=== PATIENT | female | born 1940 | race Native Hawaiian/Other Pacific Islander ===

== ENCOUNTER → 2018-03-22 | Outpatient (CLI) | payer MEDICARE, OTHER ==
[~2018-03-22] MED LIST: NOCURR; OMEP20 PO
== END | disposition home or self-care (01) ==
LOC: RADPV 10:03
PROVIDERS: ATTEND Family Medicine
DX: I70.0 Atherosclerosis of aorta (principal); I51.7 Cardiomegaly; J18.9 Pneumonia, unspecified organism; R91.8 Other nonspecific abnormal finding of lung field

== ENCOUNTER 2023-11-07 10:45 | Emergency (ER) | payer MEDICARE, OTHER ==
[~2023-11-07] VITALS: Ht 162.6 cm; Wt 79.5 kg
[2023-11-07 10:59] VITALS: TEMP 98.3
[2023-11-07 12:07] LABS: BASOPHILS % (AUTO) 1.7 % (0.0-2.0); EOSINOPHILS % (AUTO) 3.4 % (1.0-6.0); HEMATOCRIT 37.6 % (36-46); HEMOGLOBIN 12.5 g/dL (12.0-16.0); LYMPHOCYTES # (AUTO) 2.3 K/uL (1.0-4.8); LYMPHOCYTES % (AUTO) 41.3 % (22.0-44.0); MEAN CORPUSCULAR HEMOGLOBIN 32.2 pg (26.0-34.0); MEAN CORPUSCULAR HGB CONC 33.3 G/dL (31.0-37.0); MEAN CORPUSCULAR VOLUME 97 fL (80-100); MONOCYTES # (AUTO) 0.5 K/uL (0.1-1.0); NEUTROPHILS # (AUTO) 2.5 K/uL (1.8-7.7); NEUTROPHILS % (AUTO) 44.6 % (40.0-70.0); PLATELET COUNT (AUTO) 175 K/uL (150-450); RED BLOOD CELL COUNT(AUTO) 3.88 MIL/uL (4.00-5.20); RED CELL DISTRIBUTION WIDTH 13.4 % (11.5-14.5); WHITE BLOOD COUNT (AUTO) 5.5 K/uL (4.5-11.0)
[2023-11-07 12:15] LABS: ANION GAP 7 mmol/L (8-16); CARBON DIOXIDE 27 mmol/L (22-29); CHLORIDE 104 mmol/L (98-107); CREATININE 0.59 mg/dL (0.60-1.30); GLOMERULAR FILTR. RATE CALC > 60 mL/min (>60); GLUCOSE,RANDOM 100 mg/dL (70-110); POTASSIUM 4.2 mmol/L (3.5-5.1); SODIUM SERUM 138 mmol/L (136-145); UREA NITROGEN, BLOOD 11 mg/dL (7-18)
[2023-11-07 12:25] LABS: TROPONIN I-HIGH SENSITIVITY 10 ng/L (<51)
[2023-11-07 12:40] VITALS: BP 134/74; PULSE 78; RESP 16
== END 2023-11-07 13:03 | disposition home or self-care (01) ==
LOC: EMS 10:45
DX: R07.9 Chest pain, unspecified (principal); K21.9 Gastro-esophageal reflux disease without esophagitis
CPT/HCPCS: 71045; 80048; 84484; 85025; 93005; 99285; 36415-L1; 36415-TC

== ENCOUNTER 2024-09-04 10:11 | Emergency (ER) | payer MEDICARE, OTHER ==
[~2024-09-04] VITALS: Ht 157.5 cm; Wt 63.6 kg
[~2024-09-04 10:11] MED LIST changes: +OMEP-148 PO; -OMEP20 PO
[2024-09-04] MEDS ORDERED: ATOR10TA69 PO (10:21)
[2024-09-04] MEDS ORDERED: PANT40TA54 PO (10:21)
[2024-09-04] MEDS ORDERED: NAPR-1196 PO (10:21)
[2024-09-04] MEDS ORDERED: ASPI-1444 PO (10:21)
[2024-09-04] MEDS ORDERED: MONT-40 PO (10:21)
[2024-09-04] MEDS ORDERED: ISOS30TA92 PO (10:21)
[2024-09-04] MEDS: KETOROLAC TROMETHAMINE 30 MG/ML VIAL IM ONE (11:40)
[2024-09-04] MEDS: LIDOCAINE 5% TRANSDERMAL PATCH TD ONE (11:41)
[2024-09-04] MEDS ORDERED: IBUP-1492 PO (12:29)
[2024-09-04 12:46] VITALS: BP 116/86; PULSE 85; RESP 16; TEMP 98.1; O2SAT 96
== END 2024-09-04 13:29 | disposition home or self-care (01) ==
LOC: EMS 10:13
DX: M25.562 Pain in left knee (principal); Z79.82 Long term (current) use of aspirin; Z90.49 Acquired absence of other specified parts of digestive tract; Z90.710 Acquired absence of both cervix and uterus; Z79.899 Other long term (current) drug therapy
CPT/HCPCS: 99283; 29505; 73562; 96372; J1885